=== PATIENT | female | born 1990 | race Two or more races ===

== ENCOUNTER 2017-04-19 21:37 | Observation (INO) | payer MEDICAID ==
[~2017-04-19] VITALS: Ht 160 cm; Wt 106.6 kg
[2017-04-19] MEDS ORDERED: PNV1TABL76 MT (23:01)
[2017-04-19] MEDS ORDERED: MANG IV SCH (23:15)
[2017-04-19] MEDS ORDERED: LACTATED RINGERS IV SCH (23:15)
[2017-04-19] MEDS ORDERED: CUSO4 P HYD IV SCH (23:15)
[2017-04-19] MEDS ORDERED: TERBUTALINE SULFATE 1MG/ML VIAL SUBCUT PRN (23:15)
[2017-04-19] MEDS ORDERED: ZINC SULF IV SCH (23:15)
[2017-04-20] MEDS ORDERED: MVI, ADULT NO.1 10 ML in LACTATED RINGERS 1,000 ML IV SCH ×2
[2017-04-20] MEDS: GUAIFENESIN 200MG/10ML SUGAR FREE UDC PO PRN ×2 (00:13→04:41)
[2017-04-20 00:15] LABS: CLARITY URINE CLEAR (CLEAR); COLOR URINE YELLOW (YELLOW); KETONES URINE 1+ (NEGATIVE); LEUKOCYTE ESTERASE URINE NEGATIVE (NEGATIVE); NITRITE URINE NEGATIVE (NEGATIVE); OCCULT BLOOD URINE TRACE (NEGATIVE); PROTEIN URINE NEGATIVE (NEGATIVE); SPECIFIC GRAVITY URINE 1.018 (1.005-1.030); UROBILINOGEN URINE 0.2 E.U./dL (0.2-1.0)
[2017-04-20] MEDS ORDERED: DEXT 5%/LR + PITOCIN 20UNITS/L 1,000 ML IV SCH (04:05)
[2017-04-20] MEDS ORDERED: ACETAMINOPHEN 325MG TABLET PO PRN (04:15)
[2017-04-20] MEDS ORDERED: BUTORPHANOL TARTRATE 2 MG/ML VIAL IV PRN (04:15)
[2017-04-20] MEDS ORDERED: LIDOCAINE HCL 1% 20ML VIAL (Pyxis) INJ INFIL SCH (04:15)
[2017-04-20] MEDS ORDERED: CARBOPROST TROMETHAMINE 250 MCG/ML AMPUL IM PRN (04:15)
[2017-04-20] MEDS ORDERED: NALOXONE HCL 0.4 MG/ML 1ML VIAL IM PRN (04:15)
[2017-04-20] MEDS ORDERED: MISOPROSTOL 100MCG TABLET VG SCH (04:15)
[2017-04-20] MEDS ORDERED: METHYLERGONOVINE MALEATE 0.2 MG/ML IM PRN (04:15)
[2017-04-20] MEDS: LACTATED RINGERS 1,000 ML IV SCH ×2 (04:49→07:34)
[2017-04-20 05:25] LABS: BASOPHILS % 0.3 % (0.0-2.0); EOSINOPHILS % 0.3 % (0.0-5.0); HEMATOCRIT. 31.8 % (36.0-48.0); HEMOGLOBIN. 9.8 g/dL (12.0-16.0); LYMPHOCYTES % 9.6 % (20.0-50.0); MEAN CORPUSCULAR HEMOGLOBIN 22.8 pg (28.0-32.0); MEAN CORPUSCULAR VOLUME 73.6 fL (81.0-99.0); MEAN PLATELET VOLUME 9.6 fl (7.4-10.4); MONOCYTES % 5.6 % (2.0-8.0); NEUTROPHILS % 84.2 % (40.0-76.0); PLATELET 188 x1000/uL (130-400); RED BLOOD CELL COUNT 4.32 mill/uL (4.2-5.4); RED CELL DISTRIBUTION WIDTH 16.5 % (11.6-14.6)
[2017-04-20 05:33] LABS: PARTIAL THROMBOPLASTIN TIME 26.1 sec (23.4-31.0)
[2017-04-20] MEDS ORDERED: AMPICILLIN 2,000 MG in SODIUM CHLORIDE 0.9% 100 ML IV SCH (06:00)
[2017-04-20 06:57] LABS: HEPATITIS B SURFACE ANTIGEN NEGATIVE; RUBELLA IGG 10.5 IU/mL (4.99-10)
[2017-04-20 13:38] LABS: *AMPHETAMINES SCREEN URINE NEGATIVE (NEGATIVE); *BARBITURATES SCREEN URINE NEGATIVE (NEGATIVE); *BENZODIAZEPINES SCREEN URINE NEGATIVE (NEGATIVE); *COCAINE SCREEN URINE NEGATIVE (NEGATIVE); CANNABINOID URINE SCREEN NEGATIVE (NEGATIVE); METHADONE URINE SCREEN NEGATIVE (NEGATIVE); OPIATES URINE SCREEN NEGATIVE (NEGATIVE); PHENCYCLIDINE URINE SCREEN NEGATIVE (NEGATIVE)
== END 2017-04-20 11:25 | disposition home or self-care (01) ==
LOC: L&D 21:37
PROVIDERS: ADMIT Obstetrics & Gynecology; ATTEND Obstetrics & Gynecology
DX: O62.9 Abnormality of forces of labor, unspecified (principal); O26.893 Other specified pregnancy related conditions, third trimester; R00.0 Tachycardia, unspecified; R05 Cough; Z3A.36 36 weeks gestation of pregnancy
CPT/HCPCS: 36415; 80305; 81001; 85025; 85610; 85730; 86592; 86703; 86762; 86850; 86900; 86901; 87040; 87070; 87077; 87340; 96361; 96365; 96366; 96368; 99281; G0378; J0290; J3105; J3490; J7120; 81003; 96360; J7050